=== PATIENT | male | born 1980 | race Hispanic/Latino ===

== ENCOUNTER 2017-08-03 17:43 | Emergency (ER) | payer SELFPAY ==
[2017-08-03] MEDS ORDERED: Adacel (T-DAP) 0.5 ML VIAL ONE (18:51)
[2017-08-03] MEDS ORDERED: Ampicillin/Sulbactam 1.5 GM in Sodium Chloride 0.9% 100 ML IVPB SCH (20:00)
[2017-08-03] MEDS ORDERED: Lidocaine 1% (PF) 30 ML VIAL ONE (20:30)
== END 2017-08-03 22:45 | disposition home or self-care (01) ==
LOC: ERS 17:43
DX: S01.312A Laceration without foreign body of left ear, initial encounter (principal); H72.92 Unspecified perforation of tympanic membrane, left ear; F17.210 Nicotine dependence, cigarettes, uncomplicated; Y00.XXXA Assault by blunt object, initial encounter
CPT/HCPCS: 12052; 90471; 90715; 96365; 96366; J0295; J2001; J7050

== ENCOUNTER 2017-08-04 21:39 | Emergency (ER) | payer SELFPAY | END 2017-08-04 22:13 | disposition home or self-care (01) | LOC: ERS 21:39 | DX: S01.312D Laceration without foreign body of left ear, subsequent encounter (principal); F17.210 Nicotine dependence, cigarettes, uncomplicated; X58.XXXD Exposure to other specified factors, subsequent encounter | CPT/HCPCS: 99282 ==